=== PATIENT | female | born 1960 | race Caucasian/White ===

== ENCOUNTER 2021-01-23 14:52 | Outpatient (REF) | payer OTHER, SELFPAY | END 2021-01-23 14:53 | disposition home or self-care (01) | LOC: HO.HOSX 14:52 | PROVIDERS: Visit Provider Orthopaedic Surgery | DX: Z13.89 Encounter for screening for other disorder (principal) ==

== ENCOUNTER 2021-01-24 07:58 | Outpatient (REF) | payer OTHER, SELFPAY ==
--- NOTE | ~2021-01-24 | XR_ITS ---
EXAMINATION: BILATERAL KNEE X-RAY CLINICAL INFORMATION: Knee replacement COMPARISON: Previous x-rays most recent July 2019 TECHNIQUE: Standing AP view of both knees and lateral view of the left knee FINDINGS: Left knee: There is a 3 component left knee replacement in satisfactory position. No fracture, dislocation or x-ray evidence of loosening is seen. There is a small joint effusion. There is a right knee replacement in satisfactory position. XR/XR knee standing BI IMPRESSION: Satisfactory appearance of left knee replacement. Small joint effusion. Right knee replacement.
--- NOTE | ~2021-01-24 | XR_ITS ---
EXAMINATION: BILATERAL KNEE X-RAY CLINICAL INFORMATION: Knee replacement COMPARISON: Previous x-rays most recent July 2019 TECHNIQUE: Standing AP view of both knees and lateral view of the left knee FINDINGS: Left knee: There is a 3 component left knee replacement in satisfactory position. No fracture, dislocation or x-ray evidence of loosening is seen. There is a small joint effusion. There is a right knee replacement in satisfactory position. XR/XR knee LT 2V IMPRESSION: Satisfactory appearance of left knee replacement. Small joint effusion. Right knee replacement.
== END 2021-01-24 07:59 | disposition home or self-care (01) ==
LOC: HO.HOSX 07:58
PROVIDERS: PCP Internal Medicine; Visit Provider Orthopaedic Surgery
DX: Z47.1 Aftercare following joint replacement surgery (principal); Z96.653 Presence of artificial knee joint, bilateral
CPT/HCPCS: 73560; 73565

== ENCOUNTER 2022-06-26 07:03 | Emergency (ER) | payer OTHER, SELFPAY ==
--- NOTE | ~2022-06-26 | CT_ITS ---
EXAMINATION: CT ABDOMEN AND PELVIS WITH CONTRAST CLINICAL INFORMATION: Bloating. Lower abdominal pain and distention. COMPARISON: None TECHNIQUE: Multidetector volumetric images were obtained from the superior aspect of the liver through the pubic symphysis following administration 85 mL of Omnipaque 350 intravenous contrast. Sagittal and coronal reformatted images were obtained on the technologist's workstation. Oral contrast: Yes This CT examination was performed using dose optimization techniques as appropriate, variously including the following: *Automated exposure control *Adjustment of mA and/or kV according to patient size (this includes techniques or standardized protocols for targeted exams where dose is matched to indication/reason for exam; i.e. extremities or head) *Use of iterative reconstruction technique DLP: [id number] mGy-cm FINDINGS: LUNG BASES: Scarring or atelectasis in the right lower lobe adjacent to vertebral body bony osteophyte. Esophageal hernia. LIVER, GALLBLADDER, AND BILIARY TREE: The liver is low in attenuation suggestive of fatty infiltration. There are several small 5 mm low-attenuation lesions in the left lobe of the liver axial image 9 series 2. It is difficult to characterize due to small size. There are gallstones in the gallbladder. The gallbladder is contracted. No intra or extrahepatic biliary duct dilatation. PANCREAS: Unremarkable. SPLEEN: Unremarkable. ADRENAL GLANDS: Unremarkable. KIDNEYS AND URETERS: There is excreted contrast in the collecting systems. This lowers sensitivity for detection of small stones. No stone is seen. No hydronephrosis is seen. The collecting systems and ureters are normal. There are cysts seen in the lower pole the left kidney, largest measuring 1 x 2 cm. No imaging follow-up is indicated. BLADDER: There is excreted contrast in the bladder. The bladder is unremarkable. GASTROINTESTINAL TRACT: There is mild diverticulosis of the colon. Small and large bowel is otherwise normal. The appendix is normal. ABDOMINAL WALL: There is an umbilical hernia containing fat. Left inguinal hernia containing fat. LYMPH NODES: Normal. VASCULAR: Unremarkable. PELVIC VISCERA: Unremarkable. OSSEOUS STRUCTURES: Degenerative changes of the spine and hip joints. Partial ankylosis of the left sacroiliac joint. Nonspecific sclerotic lesion measuring 1 cm in the lower thoracic spine. CT/CT abdomen pelvis w con IMPRESSION: Fatty liver. 2 small low-attenuation liver lesions difficult to characterize. Gallstones. Mild diverticulosis of the colon. Esophageal hernia. Left renal cysts. Umbilical and left inguinal hernias containing fat. Fleischner guidelines were followed.
--- NOTE | 2022-06-26 07:08 | ECG_ITS ---
Test Reason : chest pain Blood Pressure : / mmHG Vent. Rate : 091 BPM Atrial Rate : 091 BPM P-R Int : 158 ms QRS Dur : 080 ms QT Int : 350 ms P-R-T Axes : 045 -22 061 degrees QTc Int : 430 ms Normal sinus rhythm Normal ECG When compared with ECG of 28-OCT-2019 23:53, No significant change was found Referred By: Generic ED Physician Electronically Signed By:KAITLYNN PRUETT
[2022-06-26 07:13] VITALS: BP 130/76; PULSE 97; RESP 16; TEMP 36.6; O2SAT 96; BMI 28.5
[2022-06-26 07:40] VITALS: BP 127/62; PULSE 84; RESP 16; TEMP 36.7; O2SAT 92
--- NOTE | 2022-06-26 07:56 | ED_ITS ---
HPI - Abdominal Pain General Chief Complaint: Abdominal Pain Stated Complaint: R side abd pain, chest pain Time Seen by Provider: 06/26/22 07:45 Source: patient Mode of arrival: ambulatory Limitations: no limitations History of Present Illness HPI narrative: 61 yo female with hx of IBS and HTN comes in with a few weeks of worsening abdominal pain, bloating, incomplete emptying intermittent bouts of nausea. She has tried all natural over the counter remedies without relief. MD elicited complaint: abdominal pain Pertinent past history: constipation Onset (ago): week(s) (few) Pain Consistency: intermittent Location: diffuse Severity: moderate Quality: cramping and fullness Radiation: none Migration to: no migration Exacerbating factors: eating Relieving factors: nothing Associated symptoms: nausea and constipation Related Data Previous Rx's Medication Instructions Recorded amoxicillin 500 mg tablet 500 mg PO ONCE 1 day #4 tabs 01/16/21 docusate sodium 100 mg capsule 100 mg PO BID PRN constipation #30 06/26/22 (Colace) caps famotidine 20 mg tablet (Pepcid) 20 mg PO DAILY PRN abdominal 06/26/22 discomfort #30 tabs ondansetron 4 mg disintegrating 4 mg PO Q8H PRN nausea and 06/26/22 tablet vomiting #20 tabs sennosides 8.6 mg capsule (senna) 8.6 mg PO BEDTIME PRN constipation 06/26/22 #30 caps Allergies Allergy/AdvReac Type Severity Reaction Status Date / Time No Known Allergies Allergy Verified 06/26/22 07:13 [No Known Allergies*] Review of Systems Review of Systems Constitutional : No Weight loss, No Fever, No Chills ENT/Mouth : No sore throat, No Rhinorrhea Eyes: No Swelling, No Redness Cardiovascular : No Chest Pain, No SOB, NoEdema Respiratory : No Cough, No Sputum, No Wheezing Gastrointestinal : Positive Nausea, no Vomiting, no Diarrhea, positive abdominal Pain, No Hematochezia, No Melena, pos constipation Genitourinary : No Dysuria, No Urinary Frequency, No Hematuria, No Urgency Musculoskeletal : No joint pain, No Myalgias, No Joint Swelling Skin : No Skin Lesions, No rash Neuro : No Weakness, No Numbness, No Dizziness, No Headache Psych : No Anxiety/Panic, No Depression Heme/Lymph: No Bruising, No Lymphadenopathy Endocrine : No Polyuria, No Polydipsia All other systems reviewed and are negative. [facility] Past Medical History Attestation statement: The following information was validated with the patient. 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 Oriented X3. No acute distress. Eyes: Pupils equal, round and reactive to light. ENT: Pharynx normal. Neck: Normal inspection. Neck supple. CVS: Normal heart rate and rhythm. Pulses normal. Respiratory: No respiratory distress. Breath sounds normal. Abdomen: Soft with mild distention - no rebound or guarding Skin: Skin warm and dry. Normal skin color. Normal skin turgor. Extremities: No lower extremity edema. No calf ttp Neuro: Oriented X 3. No motor deficit. No sensory deficit. Course Course Course Narrative: no acute findings at this time in abdomen. labs stable, UA pending if negative anticipate DC home with stool regimen had normal colonoscopy 3 years ago MDM - Abdominal Pain MDM Narrative Medical decision making narrative: 61 yo female with hx of HTN here with c/o abdominal pain distention nausea - at this time will obtain labs, EKG, CT scan for mass given her complaints - dispo per results and findings. Differential Diagnosis Differential diagnosis: Likely abdominal pain, constipation, diverticulitis, ovarian cyst and small bowel obstruction Lab Data Result diagrams: 06/26/22 08:22 06/26/22 08:23 Labs: Lab Results 06/26/22 06/26/22 06/26/22 Range/Units 08:22 08:23 08:23 WBC 5.8 (4.8-10.8) X10*3/uL RBC 4.85 (4.20-5.50) X10*6/uL Hgb 15.0 (12.0-16.0) g/dl Hct 44.8 (37.0-47.0) % MCV 92.4 (80.0-98.0) fL MCH 30.9 (27.0-33.0) pg MCHC 33.5 (31.0-35.0) g/dl RDW 12.3 (11.0-16.0) % Plt Count 252 (160-400) X10*3/uL MPV 10.8 (9.4-12.3) fL Immature Gran % (Auto) 0.3 (0.0-0.4) % Neut % (Auto) 66.0 (45-73) % Lymph % (Auto) 21.4 (20-40) % [place] % (Auto) 8.6 (2-11) % Eos % (Auto) 2.8 (0-4) % Baso % (Auto) 0.9 (0-2) % Lymph # (Auto) 1.2 (1.2-4.9) X10*3/uL [place] # (Auto) 0.5 (0.1-1.2) X10*3/uL Eos # (Auto) 0.2 (0.0-0.4) X10*3/uL Baso # (Auto) 0.1 (0.0-0.2) X10*3/uL Abs Immat Gran (auto) 0.02 (0.00-0.03) X10*3/uL Absolute Neuts (auto) 3.8 (2.0-8.3) x10*3/uL Absolute Nucleated RBC 0.000 (0.0-0.012) X10*3/uL Nucleated RBC % (auto) 0.0 (0.0-0.2) /100WBC Sodium 140 (135-145) mmol/L Potassium 4.0 (3.3-5.1) mmol/L Chloride 103 (96-108) mmol/L Carbon Dioxide 26 (22-29) mmol/L Anion Gap 15 (12-20) BUN 15 (9-16) mg/dL Creatinine 0.69 (0.5-1.4) mg/dL Estim Creat Clear Calc 107.6 Estimated GFR > 60 Random Glucose 103 (60-115) mg/dL Calcium 9.2 (8.4-10.2) mg/dL Magnesium 1.9 (1.6-2.6) mg/dL Total Bilirubin 0.4 (0.0-1.0) mg/dL Direct Bilirubin 0.2 (0.0-0.5) mg/dL AST 20 (5-31) U/L ALT 36 H (0-31) U/L Alkaline Phosphatase 77 (39-117) U/L Troponin I High Sens < 3.5 (<3.5-17.0) ng/L Total Protein 7.1 (6.5-8.0) g/dL Albumin 4.5 (3.5-5.0) g/dL Lipase 22 (8-78) U/L Urine Color Urine Appearance Urine pH (5.0-8.0) Ur Specific [place] (1.005-1.025) Urine Protein (Neg-Trace) mg/dL Urine Glucose (UA) (Negative) mg/dL Urine Ketones (Negative) mg/dL Urine Blood (Negative) Urine Nitrite (Negative) Ur Leukocyte Esterase (Negative) 06/26/22 Range/Units 11:29 WBC (4.8-10.8) X10*3/uL RBC (4.20-5.50) X10*6/uL Hgb (12.0-16.0) g/dl Hct (37.0-47.0) % MCV (80.0-98.0) fL MCH (27.0-33.0) pg MCHC (31.0-35.0) g/dl RDW (11.0-16.0) % Plt Count (160-400) X10*3/uL MPV (9.4-12.3) fL Immature Gran % (Auto) (0.0-0.4) % Neut % (Auto) (45-73) % Lymph % (Auto) (20-40) % [place] % (Auto) (2-11) % Eos % (Auto) (0-4) % Baso % (Auto) (0-2) % Lymph # (Auto) (1.2-4.9) X10*3/uL [place] # (Auto) (0.1-1.2) X10*3/uL Eos # (Auto) (0.0-0.4) X10*3/uL Baso # (Auto) (0.0-0.2) X10*3/uL Abs Immat Gran (auto) (0.00-0.03) X10*3/uL Absolute Neuts (auto) (2.0-8.3) x10*3/uL Absolute Nucleated RBC (0.0-0.012) X10*3/uL Nucleated RBC % (auto) (0.0-0.2) /100WBC Sodium (135-145) mmol/L Potassium (3.3-5.1) mmol/L Chloride (96-108) mmol/L Carbon Dioxide (22-29) mmol/L Anion Gap (12-20) BUN (9-16) mg/dL Creatinine (0.5-1.4) mg/dL Estim Creat Clear Calc Estimated GFR Random Glucose (60-115) mg/dL Calcium (8.4-10.2) mg/dL Magnesium (1.6-2.6) mg/dL Total Bilirubin (0.0-1.0) mg/dL Direct Bilirubin (0.0-0.5) mg/dL AST (5-31) U/L ALT (0-31) U/L Alkaline Phosphatase (39-117) U/L Troponin I High Sens (<3.5-17.0) ng/L Total Protein (6.5-8.0) g/dL Albumin (3.5-5.0) g/dL Lipase (8-78) U/L Urine Color Yellow Urine Appearance Clear Urine pH 7.0 (5.0-8.0) Ur Specific [place] >= 1.030 H (1.005-1.025) Urine Protein Negative (Neg-Trace) mg/dL Urine Glucose (UA) Negative (Negative) mg/dL Urine Ketones Negative (Negative) mg/dL Urine Blood Negative (Negative) Urine Nitrite Negative (Negative) Ur Leukocyte Esterase Negative (Negative) ECG Data Attestation: I personally reviewed and interpreted this ECG as follows: ECG interpretation date: 06/26/22 ECG interpretation time: 08:08 Interpretation: Rate: 91 Rhythm: NSR [place]: left Normal P waves. Normal MAYANK. Normal QRS complex. ST T wave : normal no ALEX qTC: normal prior studies: no acute ischemia The study has been interpreted contemporaneously by me. . Discharge Plan Discharge Clinical Impression: Abdominal pain Qualifiers: Abdominal location: generalized Qualified Code(s): R10.84 - Generalized abdominal pain Constipation Qualifiers: Constipation type: unspecified constipation type Qualified Code(s): K59.00 - Constipation, unspecified Patient Disposition: Home, Self-Care Instructions: Constipation (ED), Abdominal Pain (ED) Additional Instructions: return to ED for any worsening symptoms or concerns FINDINGS: LUNG BASES: Scarring or atelectasis in the right lower lobe adjacent to vertebral body bony osteophyte. Esophageal hernia.? LIVER, GALLBLADDER, AND BILIARY TREE: The liver is low in attenuation suggestive of fatty infiltration. There are several small 5 mm low-attenuation lesions in the left lobe of the liver axial image 9 series 2. It is difficult to characterize due to small size. There are gallstones in the gallbladder. The gallbladder is contracted. No intra or extrahepatic biliary duct dilatation. PANCREAS: Unremarkable.? SPLEEN: Unremarkable.? ADRENAL GLANDS: Unremarkable.? KIDNEYS AND URETERS: There is excreted contrast in the collecting systems. This lowers sensitivity for detection of small stones. No stone is seen. No hydronephrosis is seen. The collecting systems and ureters are normal. There are cysts seen in the lower pole the left kidney, largest measuring 1 x 2 cm. No imaging follow-up is indicated. BLADDER: There is excreted contrast in the bladder. The bladder is unremarkable.? GASTROINTESTINAL TRACT: There is mild diverticulosis of the colon. Small and large bowel is otherwise normal. The appendix is normal.? ABDOMINAL WALL: There is an umbilical hernia containing fat. Left inguinal hernia containing fat. LYMPH NODES: Normal. VASCULAR: Unremarkable. PELVIC VISCERA: Unremarkable.? OSSEOUS STRUCTURES: Degenerative changes of the spine and hip joints. Partial ankylosis of the left sacroiliac joint. Nonspecific sclerotic lesion measuring 1 cm in the lower thoracic spine. CT/CT abdomen pelvis w con IMPRESSION: Fatty liver. 2 small low-attenuation liver lesions difficult to characterize. Gallstones. Mild diverticulosis of the colon. Esophageal hernia. Left renal cysts. Umbilical and left inguinal hernias containing fat.? ? Fleischner guidelines were followed. Prescriptions: New docusate sodium [Colace] 100 mg capsule 100 mg PO BID PRN (Reason: constipation) Qty: 30 0RF senna 8.6 mg capsule 8.6 mg PO BEDTIME PRN (Reason: constipation) Qty: 30 0RF famotidine [Pepcid] 20 mg tablet 20 mg PO DAILY PRN (Reason: abdominal discomfort) Qty: 30 0RF ondansetron 4 mg tablet,disintegrating 4 mg PO Q8H PRN (Reason: nausea and vomiting) Qty: 20 0RF No Action amoxicillin 500 mg tablet 500 mg PO ONCE 1 Days Qty: 4 3RF Rx Instructions: Take 4 tabs 1 hours prior to dental procedure Referrals: Physician,Unknown J [Primary Care Provider] - (PCP if not better in 3 days - co uld get ultrasound of gallbladder) Stand Alone Forms: Work/School Release
[2022-06-26] MEDS: Lactated Ringers 1,000 ML 999 ML IV (08:24)
[2022-06-26 08:27] LABS: MANUAL DIFF FLAG NO
[2022-06-26 08:31] LABS: Basophils Absolute Auto 0.1 X10*3/uL (0.0-0.2); Basophils Percent Auto 0.9 % (0-2); Eosinophils Absolute Auto 0.2 X10*3/uL (0.0-0.4); Eosinophils Percent Auto 2.8 % (0-4); Hematocrit 44.8 % (37.0-47.0); Imm Gran Abs Auto 0.02 X10*3/uL (0.00-0.03); Imm Gran Pct Auto 0.3 % (0.0-0.4); Lymphocytes Absolute Auto 1.2 X10*3/uL (1.2-4.9); Lymphocytes Percent Auto 21.4 % (20-40); Mean Corpuscular HGB Conc 33.5 g/dl (31.0-35.0); Mean Corpuscular Hemoglobin 30.9 pg (27.0-33.0); Mean Corpuscular Volume 92.4 fL (80.0-98.0); Mean Platelet Volume 10.8 fL (9.4-12.3); Monocytes Absolute Auto 0.5 X10*3/uL (0.1-1.2); Monocytes Percent Auto 8.6 % (2-11); Neutrophils Absolute Auto 3.8 x10*3/uL (2.0-8.3); Platelet Count 252 X10*3/uL (160-400); Red Blood Count 4.85 X10*6/uL (4.20-5.50); Red Cell Distribution Width 12.3 % (11.0-16.0); White Blood Count 5.8 X10*3/uL (4.8-10.8)
[2022-06-26 08:55] LABS: Alanine Aminotransferase 36 U/L (0-31); Albumin Level 4.5 g/dL (3.5-5.0); Alkaline Phosphatase 77 U/L (39-117); Anion Gap 15 (12-20); Aspartate Amino Transferase 20 U/L (5-31); Bilirubin Direct 0.2 mg/dL (0.0-0.5); Bilirubin Total 0.4 mg/dL (0.0-1.0); Blood Urea Nitrogen 15 mg/dL (9-16); Calcium 9.2 mg/dL (8.4-10.2); Carbon Dioxide 26 mmol/L (22-29); Chloride 103 mmol/L (96-108); Creatinine Clr Calc Pharmacy 107.6; Estimated Glomerular Filt Rate > 60; Glucose Random 103 mg/dL (60-115); Lipase 22 U/L (8-78); Magnesium 1.9 mg/dL (1.6-2.6); Sodium 140 mmol/L (135-145); Total Protein 7.1 g/dL (6.5-8.0)
[2022-06-26 09:03] LABS: Troponin-I High Sensitivity < 3.5 ng/L (<3.5-17.0)
[2022-06-26 11:28] VITALS: BP 122/79; PULSE 69; RESP 16; O2SAT 94
[2022-06-26 11:36] LABS: Appearance Urine Clear; Color Urine Yellow; Glucose Urine UA Negative (Negative); Leukocyte Esterase Urine Negative (Negative); Nitrite Urine Negative (Negative); Specific Gravity - Urine >= 1.030 (1.005-1.025); Urine Blood Negative (Negative); Urine Ketones Negative (Negative); Urine Protein Negative (Neg-Trace)
== END 2022-06-26 11:59 | disposition home or self-care (01) ==
PROVIDERS: Emergency Provider Emergency Medicine
DX: K59.00 Constipation, unspecified (principal); I10 Essential (primary) hypertension
CPT/HCPCS: 36415; 74177; 80048; 80076; 81003; 83690; 83735; 84484; 85025; 93005; 96360; 99284

== ENCOUNTER 2022-07-18 09:11 | Emergency (ER) | payer OTHER, SELFPAY ==
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
[2022-07-18 09:17] VITALS: BP 164/93; PULSE 77; RESP 16; TEMP 36.4; O2SAT 95; BMI 28.5
--- NOTE | 2022-07-18 09:23 | ECG_ITS ---
Test Reason : dizziness Blood Pressure : / mmHG Vent. Rate : 071 BPM Atrial Rate : 071 BPM P-R Int : 174 ms QRS Dur : 086 ms QT Int : 394 ms P-R-T Axes : 045 -14 038 degrees QTc Int : 428 ms Normal sinus rhythm Normal ECG When compared with ECG of 26-JUN-2022 07:01, No significant change was found Referred By: Generic ED Physician Electronically Signed By:KAITLYNN PRUETT
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
[2022-07-18 10:48] VITALS: BP 141/81; RESP 14; TEMP 36.4; O2SAT 95
[2022-07-18 10:54] LABS: MANUAL DIFF FLAG NO
[2022-07-18] MEDS: 0.9 % Sodium Chloride 1,000 ML 999 ML IV (10:54)
[2022-07-18] MEDS: ondansetron HCL 4 MG/2 ML VIAL IVPUSH ×2 (10:54→15:30)
[2022-07-18] MEDS: Meclizine HCl 25 MG TABLET PO ×2 (10:54→15:30)
[2022-07-18 10:57] LABS: Basophils Absolute Auto 0.1 X10*3/uL (0.0-0.2); Basophils Percent Auto 0.6 % (0-2); Eosinophils Absolute Auto 0.1 X10*3/uL (0.0-0.4); Eosinophils Percent Auto 0.8 % (0-4); Hematocrit 45.2 % (37.0-47.0); Hemoglobin 15.1 g/dl (12.0-16.0); Imm Gran Abs Auto 0.07 X10*3/uL (0.00-0.03); Imm Gran Pct Auto 0.7 % (0.0-0.4); Lymphocytes Absolute Auto 1.3 X10*3/uL (1.2-4.9); Lymphocytes Percent Auto 12.6 % (20-40); Mean Corpuscular HGB Conc 33.4 g/dl (31.0-35.0); Mean Corpuscular Hemoglobin 30.4 pg (27.0-33.0); Mean Corpuscular Volume 91.1 fL (80.0-98.0); Mean Platelet Volume 10.7 fL (9.4-12.3); Monocytes Absolute Auto 0.5 X10*3/uL (0.1-1.2); Monocytes Percent Auto 4.9 % (2-11); Neutrophils Absolute Auto 8.1 x10*3/uL (2.0-8.3); Neutrophils Percent Auto 80.4 % (45-73); Platelet Count 259 X10*3/uL (160-400); Red Blood Count 4.96 X10*6/uL (4.20-5.50); Red Cell Distribution Width 12.1 % (11.0-16.0); White Blood Count 10.1 X10*3/uL (4.8-10.8)
[2022-07-18 11:13] LABS: Alanine Aminotransferase 37 U/L (0-31); Albumin Level 4.6 g/dL (3.5-5.0); Alkaline Phosphatase 76 U/L (39-117); Anion Gap 18 (12-20); Aspartate Amino Transferase 22 U/L (5-31); Bilirubin Total 0.4 mg/dL (0.0-1.0); Blood Urea Nitrogen 16 mg/dL (9-16); Calcium 9.3 mg/dL (8.4-10.2); Carbon Dioxide 22 mmol/L (22-29); Chloride 104 mmol/L (96-108); Creatinine Clr Calc Pharmacy 103.2; Estimated Glomerular Filt Rate > 60; Glucose Random 152 mg/dL (60-115); Potassium 4.2 mmol/L (3.3-5.1); Sodium 140 mmol/L (135-145); Total Protein 7.4 g/dL (6.5-8.0)
[2022-07-18 13:02] VITALS: BP 138/76; PULSE 69; RESP 16; TEMP 36.4; O2SAT 94
[2022-07-18 15:27] VITALS: BP 136/73; PULSE 67; RESP 17; TEMP 36.4; O2SAT 94
== END 2022-07-18 15:39 | disposition home or self-care (01) ==
PROVIDERS: Emergency Provider Emergency Medicine Emergency Medical Services
DX: H81.13 Benign paroxysmal vertigo, bilateral (principal); R11.2 Nausea with vomiting, unspecified; Z79.899 Other long term (current) drug therapy
CPT/HCPCS: 36415; 70450; 80053; 85025; 93005; 96361; 96374; 96376; 99284; 99285; J2405